=== PATIENT | female | born 2000 | race Caucasian/White ===

== ENCOUNTER 2023-06-22 15:06 | Outpatient (REF) | payer BC, SELFPAY | END 2023-06-22 15:07 | disposition home or self-care (01) | LOC: NCHCN 15:06 | PROVIDERS: PCP Nurse Practitioner Family; Visit Provider Nurse Practitioner Family | DX: N39.0 Urinary tract infection, site not specified (principal) | CPT/HCPCS: 87077; 87086; 87186 ==

== ENCOUNTER → 2025-03-15 18:52 | Outpatient (REF) | payer OTHER, SELFPAY ==
--- NOTE | 2025-03-15 19:20 | DI.RAD_ITS ---
Exam(s) XR FOOT RT COMPLETE EXAM: XR FOOT RT COMPLETE CLINICAL HISTORY: Toe pain, right ICD-10: M79.674. TECHNIQUE: 2D digital imaging was performed. COMPARISON: No exams were available for comparison FINDINGS: 3 views No evidence of acute fracture nor diastasis of the Lisfranc joint. Great toe metatarsophalangeal joint appears unremarkable as do the other articulations of the foot. There are no osseous lesions nor erosions. Bone density is normal. No radiopaque foreign bodies. No soft tissue findings. Benign bone island is noted in the distal phalanx of the great toe. IMPRESSION: No acute osseous findings in the right foot. DATA REPOSITORY: RADIATION DOSE DELIVERED:
--- NOTE | 2025-03-15 19:57 | DI.VRAD_ITS ---
PROCEDURE INFORMATION: Exam: XR Right Foot Exam date and time: 03/15/2025 19:20 Age: 24 years old Clinical indication: Toes; Pain of right big toe, the majority of the pain is at the base of the first toe extending into the metatarsal. TECHNIQUE: Imaging protocol: Radiologic exam of the right foot. Views: 3 or more views. COMPARISON: No relevant prior studies available. FINDINGS: Bones/joints: No acute fracture or subluxation. Soft tissues: Normal. IMPRESSION: No acute bony pathology. Dictated and Authenticated by: Chelsea Hanks MD. Orderin Drea Zaman MD
== END ==
LOC: DI 18:52
PROVIDERS: PCP Nurse Practitioner Family; Visit Provider Physician Assistant Medical
DX: M79.674 Pain in right toe(s) (principal)
CPT/HCPCS: 73630